=== PATIENT | female | born 1955 | race Caucasian/White ===

== ENCOUNTER 2016-09-26 19:47 | Inpatient (IN) | payer BC ==
[~2016-09-26 19:47] MED LIST: CYCL5TAB PO; HYDR-3326 PO; LOSA50TA21 PO; METO-306 PO; SERT100T PO; TRAM50TA2 PO
[2016-09-26] MEDS ORDERED: IV NS 0.9% 1,000 ML BAG IV ONE (20:30)
[2016-09-26] MEDS ORDERED: ONDANSETRON HCL/PF 4 MG/2 ML VIAL IVP ONE (20:30)
[2016-09-26] MEDS ORDERED: MORPHINE SULFATE INJ 2 MG/ML DISP.SYRIN IV ONE ×2 (20:30→21:30)
[2016-09-26] MEDS ORDERED: IV NS 0.9% 1,000 ML ONE ×2 (20:33→23:44)
[2016-09-26] MEDS ORDERED: MORPHINE SULFATE INJ 4 MG/ML DISP.SYRIN ONE ×2 (20:33→21:28)
[2016-09-26] MEDS ORDERED: IV SET PRIMARY 1 EA INFUS.SET MC ONE (20:33)
[2016-09-26] MEDS ORDERED: ONDANSETRON HCL/PF 4 MG/2 ML VIAL ONE ×2 (20:33→23:06)
[2016-09-26] MEDS ORDERED: MORPHINE SULFATE INJ 2 MG/ML DISP.SYRIN ONE (21:27)
[2016-09-26] MEDS ORDERED: DICYCLOMINE HCL 10 MG CAPSULE PO ONE ×2 (22:30→23:38)
[2016-09-26] MEDS ORDERED: HYDROMORPHONE 1 MG/1 ML DISP.SYRIN ONE (23:06)
[2016-09-26] MEDS ORDERED: DICYCLOMINE HCL INJ 20 MG/2 ML AMPUL IM ONE (23:06)
[2016-09-26] MEDS ORDERED: HYDROMORPHONE 1 MG/1 ML DISP.SYRIN IV ONE (23:30)
[2016-09-26] MEDS ORDERED: ONDANSETRON HCL/PF 4 MG/2 ML VIAL IV ONE (23:30)
[2016-09-26] MEDS ORDERED: IV NS 0.9% 1,000 ML IV PRN (23:32)
[2016-09-26] MEDS ORDERED: IV SET PRIMARY PUMP SET 1 EA INFUS.SET MC ONE (23:44)
[2016-09-27] MEDS ORDERED: ACETAMINOPHEN 325 MG TABLET PO PRN
[2016-09-27] MEDS ORDERED: ZOLPIDEM TARTRATE 5 MG TABLET PO PRN
[2016-09-27] MEDS ORDERED: MAGNESIUM HYDROXIDE 30 ML UDC PO PRN
[2016-09-27] MEDS ORDERED: MAG HYDROX/AL HYDROX/SIMETH 30 ML UDC PO PRN
[2016-09-27] MEDS ORDERED: HYDROCODONE/APAP 5/325MG 1 EACH TABLET PO PRN
[2016-09-27] MEDS ORDERED: Z GUARD REMEDY 2 OZ OINT TP PRN
[2016-09-27] MEDS ORDERED: TRAMADOL HCL 50 MG TABLET PO PRN
[2016-09-27] MEDS ORDERED: ONDANSETRON HCL/PF 4 MG/2 ML VIAL ONE (03:16)
[2016-09-27] MEDS ORDERED: MORPHINE SULFATE INJ 4 MG/ML DISP.SYRIN ONE ×2 (03:16→08:13)
[2016-09-27] MEDS: ONDANSETRON HCL/PF 4 MG/2 ML VIAL IVP PRN ×3 (03:21→17:46)
[2016-09-27] MEDS: MORPHINE SULFATE INJ 2 MG/ML DISP.SYRIN IV PRN ×4 (03:24→17:46)
[2016-09-27] MEDS ORDERED: PANTOPRAZOLE 40 MG TABLET.DR PO SCH (07:30)
[2016-09-27] MEDS ORDERED: IV NS 0.9% 1,000 ML IV PRN (08:58)
[2016-09-27] MEDS ORDERED: SERTRALINE HCL 50 MG TABLET PO SCH (09:00)
[2016-09-27] MEDS ORDERED: LOSARTAN POTASSIUM 50 MG TABLET PO SCH (09:00)
[2016-09-27] MEDS: CYCLOBENZAPRINE 10 MG TABLET PO SCH ×3 (10:58→17:40)
[2016-09-27] MEDS ORDERED: METOPROLOL SUCCINATE 50 MG TAB.SR.24H PO SCH (22:00)
== END 2016-09-27 18:15 | disposition home or self-care (01) | DRG 391 ==
DX: K58.9 Irritable bowel syndrome, unspecified (principal); N17.0 Acute kidney failure with tubular necrosis; E87.5 Hyperkalemia; E66.9 Obesity, unspecified; D72.829 Elevated white blood cell count, unspecified; Z90.710 Acquired absence of both cervix and uterus; Z95.810 Presence of automatic (implantable) cardiac defibrillator; Z87.891 Personal history of nicotine dependence; R74.0 Nonspecific elevation of levels of transaminase and lactic acid dehydrogenase [LDH]; E02 Subclinical iodine-deficiency hypothyroidism; Z68.35 Body mass index [BMI] 35.0-35.9, adult; F32.9 Major depressive disorder, single episode, unspecified

== ENCOUNTER → 2022-08-31 | Emergency (ER) | payer MEDICARE, BC ==
[~2022-08-31] VITALS: Ht 167.6 cm; Wt 86.2 kg
[~2022-08-31] MED LIST changes: +ALPR0.5T8 PO; +AMIO100T4 PO; +DICL50TA9 PO; +DICY10CA37 PO; +ERGO500093 PO; +FOSF3PAC PO; -HYDR-3326 PO; +HYDR-3974 PO; +HYDR-3980 PO; +HYDR-500 PO; +LEVO500T23 PO; -LOSA50TA21 PO; +LOSA50TA39 PO; +METH1TAB PO; -METO-306 PO; +METO-357 PO; +METO-358 PO; +ONDANSETRON HCL/PF 4 MG/2 ML VIAL ONE; +PHEN-705 PO
--- NOTE | 2022-08-31 13:52 | NUR ---
EMT IN ROOM FOR EKG
--- NOTE | 2022-08-31 14:22 | NUR ---
DR OLSEN AT BEDSIDE
--- NOTE | 2022-08-31 14:32 | NUR ---
MOVE SHEET SUBMITTED.
--- NOTE | 2022-08-31 15:29 | NUR ---
epoxy specialist at bed side.
--- NOTE | 2022-08-31 15:40 | NUR ---
BLOOD DRAWN AT BEDSIDE AND SENT TO LAB.
[2022-08-31 15:54] LABS: BASOPHILS % (AUTO) 0.6 % (0.0-2.0); EOSINOPHILS % (AUTO) 4.3 % (0.0-6.0); HEMATOCRIT 38 % (33-45); HEMOGLOBIN 12.4 g/dL (11.5-14.8); LYMPHOCYTES # (AUTO) 0.7 K/uL (0.8-4.8); LYMPHOCYTES % (AUTO) 9.3 % (20.0-44.0); MEAN CORPUSCULAR HGB CONC 33 g/dl (31.0-36.0); MEAN CORPUSCULAR VOLUME 92 fL (82-100); MONOCYTES # (AUTO) 0.5 K/uL (0.1-1.30); MONOCYTES % (AUTO) 6.2 % (2.0-12.0); NEUTROPHILS % (AUTO) 79.6 % (43.0-81.0); PLATELET COUNT (AUTO) 185 K/uL (150-450); RED BLOOD CELL COUNT(AUTO) 4.12 MIL/uL (4.0-5.2); WHITE BLOOD COUNT (AUTO) 7.5 K/uL (4.3-11.0)
[2022-08-31 16:06] LABS: CALCIUM, SERUM 8.8 mg/dL (8.5-10.1); CARBON DIOXIDE 26 mmol/L (21-32); CHLORIDE 101 mmol/L (98-107); CREATININE 1.1 mg/dL (0.6-1.3); GLUCOSE 91 mg/dL (74-106); POTASSIUM 5.4 mmol/L (3.5-5.1); SODIUM SERUM 135 mmol/L (136-145); UREA NITROGEN, BLOOD 20 mg/dL (7-18)
--- NOTE | 2022-08-31 17:30 | NUR ---
IV removed. Catheter intact and site benign. Pressure and 4x4 applied to site. No bleeding noted.
--- NOTE | 2022-08-31 17:35 | NUR ---
Patient does not wish to proceed with medical care recommended by Dr. Ledezma. Patient given information related to possible complications, up to and including , which could occur as a result of leaving the hospital at this time. Patient verbalizes understanding of risks involved due to leaving against medical advice. Patient has signed AMA form.
[2022-08-31 17:36] VITALS: BP 130/71
== END | disposition home or self-care (01) ==
LOC: ER 13:45
DX: R07.89 Other chest pain (principal); R00.2 Palpitations; I10 Essential (primary) hypertension; F32.A Depression, unspecified; Z79.899 Other long term (current) drug therapy
CPT/HCPCS: 99285; 71045; 93005 ×2; 85025; 80048; 36415; 84484; J2405